=== PATIENT | male | born 1960 | race Caucasian/White ===

== ENCOUNTER 2017-02-17 07:39 | Day surgery (SDC) | payer MEDICARE, OTHER ==
[~2017-02-17] VITALS: Ht 195.8 cm; Wt 63.0 kg
[~2017-02-17 07:39] MED LIST: ALAWAY 10 ML10 ML OP; ALBUTEROL0.83 MG/ML IH; AMBIEN CR 12.12.5 MG PO; ASPIRIN E.C. 8181 MG PO; ATIVAN 1MG T1 MG/TAB PO; CALCIUM 600600 M2 PO; CEPHALEXIN500 M1 PO; COLACE 100100 MG/CAP PO; EPIPEN 2-PAK1 MG/ML IM; FIORICET 325 MG1 TA1 PO; FLOMAX 0.40.4 MG/CAP PO; FLOVENT DI50 MCG/Act IH; HALCION0.25 MG PO; K-DUR 10 MEQ T10 MEQ PO; MS CONTIN 330 MG/TAB PO; NEXIUM 40MG40 MG PO; NITROSTAT0.15 MG SL; NITROSTAT0.4 MG/TAB SL; OPANA PO; OXY IR5 MG PO; PRAVACHOL 40MG40 MG PO; PROAIR HFA0.09 MG/AC IH; RELAFEN 50500 MG/TAB PO; REMERON 15M15 MG/TA1 PO; REQUIP5 MG PO; ROBAXIN 50500 MG/TAB PO; RT SPIRIVA18 MCG IH; VALIUM 5MG T5 MG/TAB PO; VITAMIN D31000 I1 PO; VOLTAREN GEL 1%1 TU TP; ZYRTEC-D 5 MG-11 TER PO
[2017-02-17 08:08] VITALS: BP 101/57; PULSE 77; TEMP 97.4
[2017-02-17] MEDS ORDERED: MELAT3MGTAB PO (08:20)
[2017-02-17] MEDS ORDERED: FLOMAX 0.40.4 MG/CAP PO (08:23)
== END 2017-02-17 08:36 | disposition home or self-care (01) ==
LOC: COL.CAR 07:39
DX: Z45.09 Encounter for adjustment and management of other cardiac device (principal); Z53.09 Procedure and treatment not carried out because of other contraindication

== ENCOUNTER → 2017-04-01 | Outpatient (CLI) | payer MEDICARE, OTHER ==
[~2017-04-01] MED LIST changes: +MELAT3MGTAB PO
== END ==
LOC: MHCPAIN 10:20
DX: G89.29 Other chronic pain (principal); M47.817 Spondylosis without myelopathy or radiculopathy, lumbosacral region; M54.16 Radiculopathy, lumbar region; M53.3 Sacrococcygeal disorders, not elsewhere classified; M96.1 Postlaminectomy syndrome, not elsewhere classified
CPT/HCPCS: G0463

== ENCOUNTER 2018-11-18 07:57 | Outpatient (CLI) | payer MEDICARE, OTHER ==
[~2018-11-18] VITALS: Ht 195.6 cm; Wt 61.4 kg
[~2018-11-18 07:57] MED LIST changes: +OPANA ER20 M1 PO; -OPANA PO
[2018-11-18 08:23] VITALS: BP 109/71; PULSE 70
[2018-11-18] MEDS ORDERED: SPIRIVA RE2.5 MCG/Ac IH (08:39)
[2018-11-18] MEDS ORDERED: B-121000 MCG PO (08:47)
[2018-11-18 10:04] VITALS: BP 101/58; PULSE 58
--- NOTE | 2018-11-18 10:10 | NUR ---
ALL MEDICATIONS GIVEN VERBAL ORDER WITH READBACK WITH MD. SEE MERGE FOR ALL ADMIN TIMES.
[2018-11-18] MEDS ORDERED: CEPHALEXIN500 M1 PO (10:41)
[2018-11-18 11:02] VITALS: BP 92/53; PULSE 73
--- NOTE | 2018-11-18 11:02 | NUR ---
PT BACK TO ROOM 12 POST LOOP REMOVAL AND INSERTION. VSS AND AX0X3. DRESSING PRESENT TO LEFT CHEST IS C/D/I. PT STATES PAIN IS A 0/10. RESTING QUIETLY IN BED WITHOUT COMPLAINTS.
[2018-11-18 11:15] VITALS: BP 104/74; PULSE 78
[2018-11-18 11:30] VITALS: BP 104/65; PULSE 64
--- NOTE | 2018-11-18 11:50 | NUR ---
PT VSS AND AX0X3 POST LOOP REMOVAL/INSERTION. DRESSING TO LEFT CHEST REMAINS C/D/I. PT STATES PAIN LEVEL 0/10. UP TO BR WITHOUT DIFFICULTY. 20G IV REMOVED FROM RIGHT FA. DISCHARGE INSTRUCTIONS REVIEWED AND SIGNED.
== END 2018-11-18 11:50 | disposition home or self-care (01) ==
LOC: COL.CAR 07:57
DX: Z45.09 Encounter for adjustment and management of other cardiac device (principal); I25.10 Atherosclerotic heart disease of native coronary artery without angina pectoris; I47.1 Supraventricular tachycardia; J30.81 Allergic rhinitis due to animal (cat) (dog) hair and dander; J44.9 Chronic obstructive pulmonary disease, unspecified; Z88.8 Allergy status to other drugs, medicaments and biological substances; Z91.030 Bee allergy status; Z79.82 Long term (current) use of aspirin; Z79.891 Long term (current) use of opiate analgesic; Z87.891 Personal history of nicotine dependence
CPT/HCPCS: J2250; J3010

== ENCOUNTER 2023-01-23 11:46 | Day surgery (SDC) | payer MEDICARE, OTHER ==
[~2023-01-23] VITALS: Ht 195.6 cm; Wt 52.4 kg
[~2023-01-23 11:46] MED LIST changes: +B-121000 MCG PO; +SPIRIVA RE2.5 MCG/Ac IH
[2023-01-23 13:52] VITALS: BP 98/71; PULSE 76; TEMP 98.3
[2023-01-23 14:20] VITALS: BP 112/77; PULSE 61; TEMP 97
[2023-01-23 14:35] VITALS: BP 123/81; PULSE 64
--- NOTE | 2023-01-23 14:50 | NUR ---
1420-PT TO BAY 4 PER CART FROM PROCEDURE ROOM. PT AMBULATED TO CHAIR WITHOUT DIFFICULTY. REPORT RECEIVED. VS OBATINED. CALL LIGHT WITHIN REACH. PT DENIES ANY NEEDS AT THIS TIME. 1425-PT TOLERATING SODA AND MUFFIN. 1435-DISCHARGE EDUCATION COMPLETED WITH PT. VERBALIZED UNDERSTANDING OF HOME AND FOLLOW UP APPOINTMENT. ALL QUESTIONS ANSWERED. DISCHARGE PAPERWORK GIVEN TO PT. 1440-IV DC'D AT THIS TIME. PT ABLE TO DRESS WITHOUT ASSISTANCE. 1445-DR PAIGE IS VISITING WITH PT. 1450-PT OFF UNIT PER WHEELCHAIR. PT DISCHARGED TO HOME WITH SON PER PERSONAL VEHICLE.
== END 2023-01-23 14:50 | disposition home or self-care (01) ==
LOC: SDCO 11:46
DX: K22.2 Esophageal obstruction (principal); K22.0 Achalasia of cardia; F17.210 Nicotine dependence, cigarettes, uncomplicated
CPT/HCPCS: C1726; J2704; J7120